=== PATIENT | male | born 1945 | race Caucasian/White ===

== ENCOUNTER → 2024-06-15 11:16 | Outpatient (REF) | payer MEDICARE, OTHER, SELFPAY | LOC: HWRAD 11:16 | PROVIDERS: ATTENDING PHYSICIAN Internal Medicine | DX: F07.81 Postconcussional syndrome (principal); S09.90XA Unspecified injury of head, initial encounter | CPT/HCPCS: 70450 ==

== ENCOUNTER 2025-05-25 09:13 | Emergency (ER) | payer MEDICARE, OTHER, SELFPAY ==
[2025-05-25 09:31] VITALS: BP 110/68
[2025-05-25 11:27] LABS: Hematocrit 43.2 % (39.0-52.0); Hemoglobin 14.7 g/dL (13.0-18.0); Mean Corp Hgb Conc. 34.0 g/dL (33.0-37.0); Mean Corpuscular Volume 89.1 fL (80.0-94.0); Nucleated Red Blood Cells % 0 % (-); Platelet Count 167 10^3/uL (130-400); Red Cell Dist. Width 13.8 % (11.5-14.5)
[2025-05-25 11:50] VITALS: BP 130/86
[2025-05-25 12:35] LABS: ALT (SGPT) 27 U/L (0-50); AST (SGOT) 23 U/L (17-59); Albumin 4.1 g/dl (3.5-5.0); Alkaline Phosphatase 77 U/L (38-126); Blood Urea Nitrogen 21 mg/dl (9-20); Calcium 9.4 mg/dl (8.4-10.2); Carbon Dioxide 26 mmol/L (22-30); Chloride 108 mmol/L (98-107); Glucose 116 mg/dl (70-99); Potassium 4.6 mmol/L (3.5-5.1); Sodium 137 mmol/L (135-145); Total Protein 7.0 g/dl (6.3-8.2); eGFR > 60.00
--- NOTE | 2025-05-25 13:05 | ED.GENMED ---
History of Present Illness
General
Chief Complaint: Fainting/Passed Out
Source: patient
Exam Limitations: none
Time Seen by Provider: 05/25/25 10:32
Nursing documentation reviewed up to this point in time: agreed with
History of Present Illness
History of Present Illness:
79-year-old male past medical history of previous stroke, hypertension presenting to the emergency department today after feeling lightheaded after hitting his elbow. Lasted for a few minutes and is fully resolved. Did not fully look pass out.
Denies any numbness weakness changes in vision headache neck pain. At this point feels very mild fatigue but no additional symptoms otherwise.
Review of Systems
Review of Systems
Allergies reviewed?: Yes
All Other Systems: ROS reviewed and negative except as documented in HPI and ROS
Phy Exam
Physical Exam
Physical Exam:
GENERAL: Alert , in no apparent distress
EYE: pupils equal and reactive
NECK: Supple, no significant adenopathy.
ENT: o/p clr, mmm.
CARDIAC: Regular rate and rhythm .
LUNGS: Clear breath sounds bilaterally, no acute respiratory distress, no wheezes/rales/rhonchi
ABDOMEN: Soft, without focal tenderness, no r/g, no cvat
NEUROLOGICAL: Alert and oriented, no focal neuro deficits 5 out of 5 upper and lower extremity strength normal sensation bilaterally normal finger-nose and [id number] no pronator drift
SKIN: Warm and dry, skin intact.
MUSCULOSKELETAL: No edema, well perfused.
PSYCH: Normal and appropriate interaction.
Course
Orders/Labs/Results
Orders:
Orders
05/25/25 09:34
Electrocardiogram (*1) Urgent
Reason for Study: Chest Pain
EKG- Treatment ONCE
05/25/25 10:57
CT Head W/o Iv Contrast Urgent
Comment:
Reason For Exam: ams
05/25/25 11:19
CBC/With Diff [Complete Blood Count/With Diff] Urgent
05/25/25 11:47
Comprehensive Metabolic Panel Urgent
05/25/25 12:14
Urinalysis Reflex To Culture Urgent
Date Specimen was Collected: 05/25/25
Time Specimen was Collected: 11:58
Urine Microscopic Reflex Cult Urgent
Abnormal Lab Results
05/25/25 05/25/25 05/25/25
11:19 11:47 12:14
MPV 11.7 H fL
(7.4-10.4)
Absolute Neuts (auto) 7.7 H 10^3/uL
(1.4-6.5)
Absolute Lymphs (auto) 0.6 L 10^3/uL
(1.2-3.4)
Neutrophils % 86.5 H %
(42.2-75.2)
Lymphocytes % 6.7 L %
(20.5-51.1)
Chloride 108 H mmol/L
(98-107)
BUN 21 H mg/dl
(9-20)
Glucose 116 H mg/dl
(70-99)
Urine Albumin (Reflex) 2+ A
(Neg - Trace)
05/25/25 11:19
05/25/25 11:47
Vital Signs
Initial and Last Documented VS:
Initial Vital Signs
Temp Pulse Resp BP Pulse Ox
97.8 F 59 20 110/68 99
05/25/25 09:31 05/25/25 09:31 05/25/25 09:31 05/25/25 09:31 05/25/25 09:31
Last Documented Vital Signs
Temp Pulse Resp BP Pulse Ox
97.8 F 60 16 130/86 100
05/25/25 09:31 05/25/25 11:50 05/25/25 11:50 05/25/25 11:50 05/25/25 13:07
MDM/Problems Addressed
MDM/Problems Addressed:
79-year-old male presenting to the emergency department today with concerns of an episode of lightheadedness that lasted for a few minutes after hitting his elbow and feeling very sharp pain. Otherwise felt well prior to this. At this point very
mild fatigue but no additional ongoing symptoms. The was concerned considering he has a history of stroke he did seem somewhat confused for a few minutes during this episode. He claims that he just felt lightheaded and was not actually
confused denies any numbness or weakness. Vital signs normal on arrival labs unremarkable EKG normal. Head CT without emergent findings. Does have a potential meningioma on the CT that was unchanged. Incidental finding was discussed with the
patient. Otherwise patient well-appearing here no evidence of any emergent cause of feeling lightheaded. Patient stable for discharge return precautions given.
*Pulse Oximetry
SaO2: 100
Oxygen Mode of Delivery: Room air
Patient hypoxic: no (100)
*Critical Care Note
Total Time (30-74mins, 75-104mins- exclusive of procedures): Not Applicable
ED Attending Note
-
Portions of this chart may have been created with voice recognition software.� Occasional wrong word or��sound alike� substitutions may have occurred due to the inherent limitations of voice recognition software.
Discharge Plan
Departure
Patient Disposition: Home (Routine Discharge)
Date of Disposition: 05/25/25
Time of Disposition: 13:31
Patient with high blood pressure during this ER visit?: No
Condition: Good
Covid-19: Not Applicable
Discharge Problem:
Lightheadedness
Instructions: Dizziness, Nonvertigo, (DC)
Referrals:
Brittany Phipps MD [Family Provider, Internal Medicine]
Activity Restrictions/Additional Instructions:
You came to the emergency department today with concerns of lightheadedness. This could be secondary to a vasovagal event. Please follow-up closely with your primary care doctor. Return for any worsening, new or concerning symptoms.
Interventions
Interventions:
*Risk Screen - Suicide Last Done: 05/25/25 09:31
*General Assessment Last Done: 05/25/25 09:31
*Neglect/Abuse Screening Last Done: 05/25/25 09:31
*ED- Fall Risk Assessment Last Done: 05/25/25 11:21
ED- Cardiac Assessment Last Done: 05/25/25 11:21
ED- Neurological Assessment Last Done: 05/25/25 11:21
Discharge Date and Time
Print Language: COLOM[place]
[2025-05-25 13:21] LABS: Urine Character Clear (Clear)
[2025-05-25 13:39] VITALS: BP 150/76
[2025-05-25 14:42] LABS: Urine Red Blood Cell 0-2 /HPF (0-2); Urine White Cell 0-2 /HPF (0-5)
== END 2025-05-25 13:40 | disposition home or self-care (01) ==
LOC: EMR 09:13
PROVIDERS: Physician Assistant; EMERGENCY PHYSICIAN Student in an Organized Health Care Education/Training Program; FAMILY PHYSICIAN Internal Medicine
DX: R42 Dizziness and giddiness (principal); R53.83 Other fatigue; R41.0 Disorientation, unspecified; S59.909A Unspecified injury of unspecified elbow, initial encounter; W22.09XA Striking against other stationary object, initial encounter; Z86.73 Personal history of transient ischemic attack (TIA), and cerebral infarction without residual deficits
CPT/HCPCS: 99284; 70450; 80053; 81003; 81015; 85025; 93005

== ENCOUNTER 2025-08-12 16:00 | Emergency (ER) | payer MEDICARE, OTHER, SELFPAY ==
[2025-08-12 16:07] VITALS: BP 144/68
[2025-08-12 20:49] VITALS: BP 149/78
[2025-08-12 20:51] VITALS: BMI 25.8
--- NOTE | 2025-08-12 22:50 | ED.GENMED ---
History of Present Illness
<Irene Jean NP - Last Filed: 08/13/25 13:12>
General
Chief Complaint: Fall
Source: patient and family (spouse)
Exam Limitations: none
Time Seen by Provider: 08/12/25 20:25
Nursing documentation reviewed up to this point in time: agreed with
History of Present Illness
History of Present Illness:
Patient to ED after fall at home. He was outside and tripped. Fell onto pavement hitting his face. No LOC. Able to get self up, ambulate into home. Brought to ED by spouse. He has large amt of bruising and swelling to his right orbit, right
side of face,, upper lip. Incident occurred just [employer]
Past History
<Irene Jean DESIGN MANAGER - Last Filed: 08/13/25 13:12>
Past History
ED Past Medical History: Cancer (prostate. COmpleted radiation therapy 2 weeks ago.) and HTN
Review of Systems
<Irene Jean DESIGN MANAGER - Last Filed: 08/13/25 13:12>
Review of Systems
Allergies reviewed?: Yes
All Other Systems: ROS reviewed and negative except as documented in HPI and ROS
Constitutional: Reports no symptoms
EENT: Reports no symptoms
Respiratory: Reports no symptoms
Cardiac: Reports no symptoms
ABD/GI: Reports no symptoms
: Reports no symptoms
Musculoskeletal: Reports no symptoms
Skin: Reports other (large amt of bruising and swelling to right orbit, right side of face, upper lip)
Neurological: Reports no symptoms
Psychiatric: Reports no symptoms
Phy Exam
<Irene Jean NP - Last Filed: 08/13/25 13:12>
General Physical Exam
General Presentation: moderate distress
General age: appears stated age
General Skin: warm and dry
General Habitus: normal
General Mental: alert
ENT Exam
ENT Exam: EOMI, TM's normal, neck supple, normocephalic and other (Teeth intact. No evidence of dental injury. No lip laceration)
Eye Exam
Eye Exam: PERRL, EOMI and other (Large amt of swelling and bruising to right orbit. Able to visualize conjunctiva and pupil by manually opening lids. EOMI. Unable to complete posterior exam. Vision intact)
Cardiovascular Exam
Cardiovascular Exam: regular rate/rhythm and no edema
Gastrointestinal Exam
Gastrointestinal Exam: non tender and soft
Neurological Exam
Neurological Exam: alert, oriented x3, CN II-XII intact, no motor deficits, no sensory deficits and speech normal
[place] Coma Scale
Eye Opening: Spontaneous
Verbal Response: Oriented
Motor Response: Obeys Commands
GCS Total Score: 15
Musculoskeletal Exam
Musculoskeletal Exam: full ROM and neuro vasc intact
Skin Exam
Skin Exam: other (large hematoma, large amt of swelling to right orbit, right upper lip)
Psychiatric Exam
Psychiatric Exam: normal mood/affect
<Eliza Montiel MD - Last Filed: 08/13/25 03:02>
Aniceto Coma Scale
GCS Total Score: 15
Course
<Irene Jean NP - Last Filed: 08/13/25 13:12>
Orders/Labs/Results
Orders:
Orders
08/12/25 16:10
CT Head W/o Iv Contrast Urgent
Comment:
Reason For Exam: fell. denies loc. large hematoma to right eye
08/12/25 20:48
CT Cervical Spine W/o Iv Contr Urgent
Comment:
Reason For Exam: R eye swollen shut s/p fall
CT Facial Bones W/o Iv Contras Urgent
Comment:
Reason For Exam: r eye swollen shut s/p fall
08/13/25 00:00
CT Head W/o Iv Contrast Urgent
Reason For Exam: Repeat,minimal extra axial blood products on prior
Vital Signs
Initial and Last Documented VS:
Initial Vital Signs
Temp Pulse Resp BP Pulse Ox
98.9 F 64 16 144/68 98
08/12/25 16:07 08/12/25 16:07 08/12/25 16:07 08/12/25 16:07 08/12/25 16:07
Last Documented Vital Signs
Temp Pulse Resp BP Pulse Ox
98.2 F 62 18 139/91 96
08/12/25 23:01 08/13/25 01:33 08/13/25 01:33 08/13/25 01:33 08/13/25 01:33
<Eliza Montiel MD - Last Filed: 08/13/25 03:02>
Orders/Labs/Results
Orders:
Orders
08/12/25 16:10
CT Head W/o Iv Contrast Urgent
Comment:
Reason For Exam: fell. denies loc. large hematoma to right eye
08/12/25 20:48
CT Cervical Spine W/o Iv Contr Urgent
Comment:
Reason For Exam: R eye swollen shut s/p fall
CT Facial Bones W/o Iv Contras Urgent
Comment:
Reason For Exam: r eye swollen shut s/p fall
08/13/25 00:00
CT Head W/o Iv Contrast Urgent
Reason For Exam: Repeat,minimal extra axial blood products on prior
Vital Signs
Initial and Last Documented VS:
Initial Vital Signs
Temp Pulse Resp BP Pulse Ox
98.9 F 64 16 144/68 98
08/12/25 16:07 08/12/25 16:07 08/12/25 16:07 08/12/25 16:07 08/12/25 16:07
Last Documented Vital Signs
Temp Pulse Resp BP Pulse Ox
98.2 F 62 18 139/91 96
08/12/25 23:01 08/13/25 01:33 08/13/25 01:33 08/13/25 01:33 08/13/25 01:33
<Irene Jean NP - Last Filed: 08/13/25 13:12>
*Radiology
Radiology exam reviewed: radiology read reviewed
*Pulse Oximetry
SaO2: 97
Oxygen Mode of Delivery: Room air
Patient hypoxic: no
*Critical Care Note
Total Time (30-74mins, 75-104mins- exclusive of procedures): Not Applicable
<Irene Jean NP - Last Filed: 08/13/25 13:12>
Update Note
Update Note:
Patient to ED after trip and fall at home. Hit face on pavement. Large amt of swelling and bruising to right orbit and upper lip. CT report reviewed. Head CT - small hypoattenuating focus in the right frontal convexity possibly representing extra
axial blood products. Dr. Floyd consulted, CT sent via [employer]. Recommends repeating at 8 hrs. Discussed findings with patient. CT image shown to him. He is agreeable to plan. CT facial bones: no fractures noted. CT Cspine. No fx
noted. 0.8cm rounded lytic lesion noted on posterior aspect of C4 vertebral body which may represent hemangioma. Radiologists suggests that if there is a cancer history, a metastatic lesion could look similar. I discussed this with him. He just
completed radiation treatment for prostate cancer which he was told was confined. I instructed him to follow up with his oncologist with this finding for further testing as indicated. Patient resting comfortably. Repeat head CT pending
ED Attending Note
<Irene Jean NP - Last Filed: 08/13/25 13:12>
-
Portions of this chart may have been created with voice recognition software.� Occasional wrong word or��sound alike� substitutions may have occurred due to the inherent limitations of voice recognition software.
<Eliza Montiel MD - Last Filed: 08/13/25 03:02>
ED Attending Note
Patient seen and examined by attending physician: Yes
I performed the substantive portion of visit, reviewed & personally made and approve the management plan that is documented in note by myself or DIANNE.: Yes
ED Attending Note:
Repeat CT read by vision compared to earlier today 'no significant interval change. Stable subtle extra-axial density right frontal lobe series 201 image 18. Ventricles are stable. No midline shift.' This finding was discussed with DrLuís
Elena from neurosurgery who is reassured by this, recommends patient is a candidate for discharge, should hold aspirin for 1 week. I personally examined patient who is awake alert pleasant and fully oriented. He has a large periorbital
hematoma. I personally confirmed patient does not have photophobia, no hyphema, pupil equal round and reactive. He does have a large subconscious hemorrhage which would be expected given his trauma. He will need close follow-up regarding both CT
of head and neck findings, we will print out these reports for him and instruct him to get close follow-up. Case d/w pt , questions answered, and we will print out the discs for them regarding close f/u.
Discharge Plan
Departure
Patient Disposition: Home (Routine Discharge)
Date of Disposition: 08/13/25
Time of Disposition: 02:44
Patient with high blood pressure during this ER visit?: Yes
Condition: Good
Discharge Problem:
Head injury
Instructions: Head Injury in Adults (DC), Contusion (DC), Subconjunctival hemorrhage, BLOOD PRESSURE
Prescriptions:
No Action
lisinopril 20 mg Tablet
20 mg PO DAILY
amlodipine 10 mg Tablet
10 mg PO DAILY
aspirin 81 mg Tablet
81 mg PO DAILY
sertraline 50 mg Tablet
50 mg PO DAILY
solifenacin 10 mg Tablet
10 mg PO DAILY
Referrals:
Wild Deras MD [Active, Ophthalmology] - Follow up in 2-3 days
Brittany Phipps MD [Family Provider, Internal Medicine] - Follow up in 2-3 days
Activity Restrictions/Additional Instructions:
PLEASE SEE ATTACHED CAT SCAN REPORTS WHICH REQUIRE CLOSE FOLLOW-UP WITH YOUR DOCTOR. YOU WILL LIKELY NEED FURTHER TESTING SUCH AN MRI, BUT THIS IS NOT CONSIDERED AN EMERGENCY TEST AT THIS TIME. IF YOU DEVELOP REPEATED VOMITING, SEVERE HEADACHE,
NECK PAIN, FEVER, NUMBNESS, CHEST PAIN, SHORTNESS OF BREATH, OR OTHER WORRISOME SIGNS, PLEASE RETURN TO THE ER IMMEDIATELY ! YOU SHOULD DISCONTINUE YOUR ASPIRIN OVER THE NEXT 7 DAYS.
Interventions
Interventions:
*Risk Screen - Suicide Last Done: 08/12/25 16:07
*General Assessment Last Done: 08/12/25 20:51
*Neglect/Abuse Screening Last Done: 08/12/25 16:07
*ED- Fall Risk Assessment Last Done: 08/12/25 20:51
*ED COVID-19 Vaccine History Last Done: 08/12/25 20:51
*Nursing Disposition Last Done: 08/13/25 08:25
ED-Musculoskeletal Assessment Last Done: 08/13/25 00:11
ED- Neurological Assessment Last Done: 08/12/25 20:50
ED-Skin Assessment Last Done: 08/12/25 20:50
Discharge Date and Time
Discharge Date/Time: 08/13/25 08:25
Print Language: [place]ET[place]ESE
[2025-08-12 23:01] VITALS: BP 138/73
[2025-08-13 01:33] VITALS: BP 139/91
--- NOTE | 2025-08-13 03:30 | PTCARENOTE ---
patient declined repeat vital signs as he is trying to rest until his picks him up at 0900, patients linens changed as he was ambulating to restroom, call lala within reach, no signs of distress at this time.
--- NOTE | 2025-08-13 08:25 | EDRN ---
Reviewed discharge instructions with patient's . into speak to patient and his about medication concerns. Verbalized understanding. Taken to lobby in wheelchair.
== END 2025-08-13 08:25 | disposition home or self-care (01) ==
LOC: EMR 16:00
PROVIDERS: EMERGENCY PHYSICIAN Emergency Medicine; FAMILY PHYSICIAN Internal Medicine
DX: S00.11XA Contusion of right eyelid and periocular area, initial encounter (principal); S00.531A Contusion of lip, initial encounter; S00.83XA Contusion of other part of head, initial encounter; W01.0XXA Fall on same level from slipping, tripping and stumbling without subsequent striking against object, initial encounter; Y92.007 Garden or yard of unspecified non-institutional (private) residence as the place of occurrence of the external cause; I10 Essential (primary) hypertension; C61 Malignant neoplasm of prostate; Z92.21 Personal history of antineoplastic chemotherapy
CPT/HCPCS: 99284; 70450; 70486; 72125